=== PATIENT | female | born 1995 | race Caucasian/White ===

== ENCOUNTER 2021-02-17 08:00 | Emergency (ER) | payer OTHER ==
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
[2021-02-17 09:09] VITALS: BP 130/89; TEMP 98.3; O2SAT 100
== END 2021-02-17 09:05 | disposition home or self-care (01) ==
LOC: ER 08:00
DX: R07.89 Other chest pain (principal); V47.5XXA Car driver injured in collision with fixed or stationary object in traffic accident, initial encounter
CPT/HCPCS: 71046; 99283